=== PATIENT | female | born 1950 | race Caucasian/White ===

== ENCOUNTER 2016-06-25 21:26 | Emergency (ER) | payer MEDICARE, OTHER ==
[2016-06-25] MEDS ORDERED: HYDROcodone/Acetaminophen 10/325 mg Tablet ONE (21:58)
[2016-06-25] MEDS ORDERED: Metoprolol Tartrate 50 MG TAB ONE (22:01)
[2016-06-25] MEDS ORDERED: Amoxicillin/Potassium Clav 875 MG TAB ONE (22:12)
[2016-06-25] MEDS ORDERED: Phenazopyridine HCl 97.5 MG TABLET PO SCH ×2 (22:15)
--- NOTE | 2016-06-25 22:27 | ERRECORD ---
[facility] EMERGENCY RECORD HPI UTI (22:02 RW) CHIEF COMPLAINT: Patient presents for evaluation of urinary tract infection signs or symptoms:, dysuria, frequency, hesitancy. HISTORIAN: History provided by patient. LOCATION: Symptoms are localized, most severe in the suprapubic region. QUALITY: Described as similar to previous episodes. SEVERITY: Maximum severity of symptoms mild, Currently symptoms are mild, Maximum severity of pain rated as 10/10, Current severity of pain rated as 10/10. TIME COURSE: Patient unable to describe onset of symptoms, There has been no change in the patient's symptoms over time, are constant. ASSOCIATED WITH FEMALE: No associated symptoms. EXACERBATED BY: Patient's condition exacerbated by nothing. RELIEVED BY: Patient's condition relieved by nothing. ROS (22:03 RW) CONSTITUTIONAL: Negative constitutional review of systems. EYES: Negative eye review of systems. ENT: Negative ears, nose, throat review of systems. CARDIOVASCULAR: Negative cardiovascular review of systems. RESPIRATORY: Negative respiratory review of systems. GI: Negative gastrointestinal review of systems. GENITOURINARY FEMALE: Historian reports dysuria, reports hesitancy. MUSCULOSKELETAL: Negative musculoskeletal review of systems. SKIN: Negative skin review of systems. NEUROLOGIC: Negative neurologic review of systems. ENDOCRINE: Negative endocrine review of systems. HEMO/LYMPHATIC: Normal hematologic/lymphatic system review. ALLERGIC/IMMUNOLOGIC: Normal allergy/immunologic system review. PSYCHIATRIC: Negative psychiatric review of systems. NOTES: All systems reviewed, negative except as described above. PAST MEDICAL HISTORY (21:49 KASA) MEDICAL HISTORY: Notes: 244/106, Flu vaccine not up to date, Tetanus immunization up to date, Date of immunization: 2010, Pneumococcal vaccine not up to date, Past medical history includes renal disease, Bladder infections, Past medical history includes gastrointestinal disease, bowel obstruction, Past medical history includes history of hypertension, Patient is compliant, Notes: Colon issues from hernia repair. FEMALE SURGICAL HISTORY: Surgical history of hernia repair, Surgical history of hysterectomy,. PSYCHIATRIC HISTORY: Psychiatric history includes, anxiety. SOCIAL HISTORY: Lives at home, with family, Patient drinks &a-1R&a+25V*p+0X*z5109H*c202B*c15G*c2P*p-0X&a-25V&a+1R Name: Riana Harris : 1950 F66 MedRec: [id number] AcctNum: [id number] Prepared: evy Jun 25, 2016 22:41 by Interface Page 1 of 3 pMD [facility] EMERGENCY RECORD socially, every week, Patient denies drug use, Patient has no smoking history. KNOWN ALLERGIES Sulfa (Unconfirmed) Sulfa (Sulfonamide Antibiotics) (Unconfirmed) CURRENT MEDICATIONS lisinopril: TABLET : Strength - 20 mg : ORAL Patient Dose: 1 tab(s) Oral once a day (in the morning). (21:50 KASA) carvedilol: TABLET : Strength - 12.5 mg : ORAL Patient Dose: 1 tab(s) Oral 2 times a day. (21:50 KASA) aspirin: TABLET : Strength - 81 mg : ORAL Patient Dose: 1 tab(s) Oral once a day (in the morning).holding due to recent dental procedure. (21:56 KASA) vitamin E: CAPSULE : Strength - 400 unit : ORAL Patient Dose: 1 tab(s) Oral once a day (in the morning). (21:56 KASA) Miralax: POWDER IN PACKET (EA) : Strength - 17 gram : ORAL Patient Dose: 1 yamila Oral once a day (in the morning).1 PCKT IN WATER. (21:56 KASA) Tylenol-Codeine #3: TABLET : Strength - 300 mg-30 mg : ORAL Patient Dose: 1-2 tab(s) Oral every 6 hours PRN. (21:56 KASA) VITAL SIGNS (21:41 KASA) VITAL SIGNS: BP: 219/107, Pulse: 82, Resp: 20, Temp: 97.8 (Oral), Pain: 10 (Constant), O2 sat: 94 on Room Air, Time: 06/25/2016 21:41. PHYSICAL EXAM (22:04 RW) CONSTITUTIONAL: Vital signs reviewed, Blood pressure, hypertensive, took evening BP meds "anxious". HEAD: Head exam normal. EYES: Eye exam normal. ENT: ENT exam normal. NECK: Neck exam normal. RESPIRATORY CHEST: Respiratory and chest exam normal. CARDIOVASCULAR: Cardiovascular assessment normal. ABDOMEN FEMALE: Abdominal exam normal. BACK: Back exam normal. UPPER EXTREMITY: Upper extremity exam normal. LOWER EXTREMITY: Lower extremity exam normal. NEURO: Neuro exam normal. &a-1R&a+25V*p+0X*q9189Q*c202B*c15G*c2P*p-0X&a-25V&a+1R Name: Riana Harris : 1950 F66 MedRec: [id number] AcctNum: [id number] Prepared: FriJun 25, 2016 22:41 by Interface Page 2 of 3 pMD [facility] EMERGENCY RECORD SKIN: Skin exam normal. LYMPHATIC: Lymphatic exam normal. PSYCHIATRIC: Psychiatric exam normal. MEDICATION ADMINISTRATION SUMMARY Drug Name: Augmentin, Dose Ordered: 1 tab(s), Route: Oral, Status: Given, Time: 22:14 06/25/2016, Detailed record available in Medication Service section. PROBLEM LIST No recorded problems DIAGNOSIS (22:01 RWAG) FINAL: PRIMARY: UTI, ADDITIONAL: ESSENTIAL PRIMARY HYPERTENSION. PRESCRIPTION Levaquin oral: TABLET : 750 mg : ORAL : Quantity: 1 Unit: tab(s) Route: ORAL Schedule: once a day (in the morning) Dispense: 7 Unit: tab(s) May substitute. Refills: No Refills . (22:00 RWAG) NOTES: No Refills. (22:00 RWAG) Pyridium: TABLET : 200 mg : ORAL : Quantity: 1 Unit: tab(s) Route: ORAL Schedule: 3 times a day Dispense: 9 Unit: tab(s) May substitute. Refills: No Refills . (22:00 RWAG) NOTES: No Refills. (22:00 RWAG) Augmentin: TABLET : 875 mg-125 mg : ORAL : Quantity: 1 Unit: tab(s) Route: ORAL Schedule: every 12 hours Dispense: 10 Unit: tab(s) May substitute. Refills: No Refills . (22:12 RWAG) NOTES: No Refills. (22:12 RWAG) DISPOSITION PATIENT: Disposition Type: Discharge, Disposition: *Discharge Home, Disposition Transport: Car, Condition: Improved. (22:01 RWAG) Patient left the department. (22:18 KASA) Galvin: KASA=CHRISTOPHE Nunez, Lisha RWAG=MD Tyler, Rangel &a-1R&a+25V*p+0X*q5683W*c202B*c15G*c2P*p-0X&a-25V&a+1R Name: Riana Harris : 1950 F66 MedRec: [id number] AcctNum: [id number] Prepared: Larry Jun 25, 2016 22:41 by Interface Page 3 of 3 pMD MTDD
--- NOTE | 2016-06-25 22:33 | PICIS ---
[facility] EMERGENCY RECORD TRIAGE (FriJun 25, 2016 21:36 KASA) PATIENT: NAME: Riana Harris, AGE: 66, GENDER: female, : Fri1950, TIME OF GREET: FriJun 25, 2016 21:27, PREFERRED LANGUAGE: Haitian, ETHNICITY: Not or , ECODE BILLING MAP: [facility] [place] [facility], SSN: [id number], Zip Code: [address], KG WEIGHT: 79.38, PHONE: , , , PERSON ID: [id number]. (FriJun 25, 2016 21:36 KASA) COMPLAINT: THINKS BLADDER INF OR KIDNEY STONE,SINCE FRI. (FriJun 25, 2016 21:36 KASA) ADMISSION: URGENCY: 4 Non Urgent, ADMISSION SOURCE: Home, TRANSPORT: CAR, BED: ER -03. (FriJun 25, 2016 21:36 KASA) ASSESSMENT: Symptoms began 06/21/2016. (21:49 KASA) PAIN: Patient complains of pain described as, aching, on a scale 0-10 patient rates pain as 10, Location Lower abdominal, Pain is intermittent, Onset was 06/21/2016, No aggravating factors, No relieving factors. (21:49 KASA) SIRS SCORING: Heart Rate 55-109 (0), Temp range 96.8-101.1 (0), respiratory rate 12-24 (0), Mental Status altered: no (0). (21:49 KASA) TRIAGE SCREENING: Patient denies suicidal ideation, Patient denies presence of domestic violence. (21:49 KASA) TREATMENTS IN PROGRESS: Treatments given Prehospital: 2-Aleeve @ 2100. (21:49 KASA) PROVIDERS: TRIAGE NURSE: Lisha Nunez RN. (FriJun 25, 2016 21:36 KASA) VITAL SIGNS: BP 219/107, Pulse 82, Resp 20, Temp 97.8, (Oral), Pain 10, (Constant), O2 Sat 94, on Room Air, Time 06/25/2016 21:41. (21:41 KASA) PREVIOUS VISIT ALLERGIES: Sulfa (Sulfonamide Antibiotics). (FriJun 25, 2016 21:36 KASA) Sulfa (Sulfonamide Antibiotics). (21:49 KASA) KNOWN ALLERGIES Sulfa (Unconfirmed) Sulfa (Sulfonamide Antibiotics) (Unconfirmed) CURRENT MEDICATIONS lisinopril: TABLET : Strength - 20 mg : ORAL Patient Dose: 1 tab(s) Oral once a day (in the morning). (21:50 KASA) carvedilol: TABLET : Strength - 12.5 mg : ORAL Patient Dose: 1 tab(s) Oral 2 times a day. (21:50 KASA) aspirin: TABLET : Strength - 81 mg : ORAL Patient Dose: 1 tab(s) Oral once a day (in the morning).holding due to recent dental procedure. (21:56 KASA) &a-1R&a+25V*p+0X*h3401X*c202B*c15G*c2P*p-0X&a-25V&a+1R Name: Riana Harris : 1950 F66 MedRec: [id number] AcctNum: [id number] Prepared: FriJun 25, 2016 22:48 by Interface Page 1 of 5 pMD [facility] EMERGENCY RECORD vitamin E: CAPSULE : Strength - 400 unit : ORAL Patient Dose: 1 tab(s) Oral once a day (in the morning). (21:56 KASA) Miralax: POWDER IN PACKET (EA) : Strength - 17 gram : ORAL Patient Dose: 1 yamila Oral once a day (in the morning).1 PCKT IN WATER. (21:56 KASA) Tylenol-Codeine #3: TABLET : Strength - 300 mg-30 mg : ORAL Patient Dose: 1-2 tab(s) Oral every 6 hours PRN. (21:56 KASA) VITAL SIGNS (21:41 KASA) VITAL SIGNS: BP: 219/107, Pulse: 82, Resp: 20, Temp: 97.8 (Oral), Pain: 10 (Constant), O2 sat: 94 on Room Air, Time: 06/25/2016 21:41. NURSING ASSESSMENT: ABDOMEN (21:50 KASA) CONSTITUTIONAL: Patient arrives ambulatory, Gait steady, History obtained from patient, Patient appears, uncomfortable, Patient cooperative, Oriented to person, place and time, Skin warm, Skin dry, Skin normal in color, Mucous membranes pink, Mucous membranes moist, Patient complains of Lower abdominal pain, Lower abdominal pain that radiates up to the bilateral lower back, that started Friday. Pt thinks she has a bladder infection or kidney stone. ABDOMEN: Abdomen assessment findings include abdomen symmetrical, Abdomen soft, no associated nausea, no associated vomiting. GENITOURINARY FEMALE: Associated with urinary complaints, difficulty urinating, inability to void, a foul odor, Date and time of last void: 06/25/2016, voided at home just before coming in. SAFETY: Side rails up, Cart/Stretcher in lowest position, Call light within reach, Hospital ID band on. ORDER DETAILS Order Name: Urinalysis w/ Rflx Microscopic, Status: Canceled, Time: 22:28 06/25/2016, User: System, - Ordered for: MD Tyler, Rangel, - Entered by: CHRISTOPHE Nunez Kathy - Tue Jun 25, 2016 21:37, - Quantity: 1. MEDICATION ADMINISTRATION SUMMARY Drug Name: Augmentin, Dose Ordered: 1 tab(s), Route: Oral, Status: Given, Time: 22:14 06/25/2016, Detailed record available in Medication Service section. MEDICATION SERVICE (22:14 [facility]) &a-1R&a+25V*p+0X*u6316Q*c202B*c15G*c2P*p-0X&a-25V&a+1R Name: Riana Harris : 1950 F66 MedRec: [id number] AcctNum: [id number] Prepared: FriJun 25, 2016 22:48 by Interface Page 2 of 5 pMD [facility] EMERGENCY RECORD Augmentin: Order: Augmentin (amoxicillin trihydrate/potassium clavulanate) - Dose: 1 tab(s) : Oral Schedule: Now Ordered by: Rangel Scott MD Entered by: Rangel Scott MD FriJun 25, 2016 22:11 , Acknowledged by: Lisha Nunez RN FriJun 25, 2016 22:13 Documented as given by: Lisha Nunez RN evy Jun 25, 2016 22:14 Patient, Medication, Dose, Route and Time verified prior to administration. Amount given: 1 tab, Site: Medication administered P.O., Correct patient, time, route, dose and medication confirmed prior to administration, Patient advised of actions and side-effects prior to administration, Allergies confirmed and medications reviewed prior to administration, Patient in position of comfort, Side rails up, Cart in lowest position. HPI UTI (22:02 [facility]) CHIEF COMPLAINT: Patient presents for evaluation of urinary tract infection signs or symptoms:, dysuria, frequency, hesitancy. HISTORIAN: History provided by patient. LOCATION: Symptoms are localized, most severe in the suprapubic region. QUALITY: Described as similar to previous episodes. SEVERITY: Maximum severity of symptoms mild, Currently symptoms are mild, Maximum severity of pain rated as 10/10, Current severity of pain rated as 10/10. TIME COURSE: Patient unable to describe onset of symptoms, There has been no change in the patient's symptoms over time, are constant. ASSOCIATED WITH FEMALE: No associated symptoms. EXACERBATED BY: Patient's condition exacerbated by nothing. RELIEVED BY: Patient's condition relieved by nothing. ROS (22:03 [facility]) CONSTITUTIONAL: Negative constitutional review of systems. EYES: Negative eye review of systems. ENT: Negative ears, nose, throat review of systems. CARDIOVASCULAR: Negative cardiovascular review of systems. RESPIRATORY: Negative respiratory review of systems. GI: Negative gastrointestinal review of systems. GENITOURINARY FEMALE: Historian reports dysuria, reports hesitancy. MUSCULOSKELETAL: Negative musculoskeletal review of systems. SKIN: Negative skin review of systems. NEUROLOGIC: Negative neurologic review of systems. ENDOCRINE: Negative endocrine review of systems. HEMO/LYMPHATIC: Normal hematologic/lymphatic system review. ALLERGIC/IMMUNOLOGIC: Normal allergy/immunologic system review. PSYCHIATRIC: Negative psychiatric review of systems. &a-1R&a+25V*p+0X*p8528J*c202B*c15G*c2P*p-0X&a-25V&a+1R Name: Riana Harris : 1950 F66 MedRec: [id number] AcctNum: [id number] Prepared: Larry Jun 25, 2016 22:48 by Interface Page 3 of 5 pMD [facility] EMERGENCY RECORD NOTES: All systems reviewed, negative except as described above. PAST MEDICAL HISTORY (21:49 KASA) MEDICAL HISTORY: Notes: 244/106, Flu vaccine not up to date, Tetanus immunization up to date, Date of immunization: 2010, Pneumococcal vaccine not up to date, Past medical history includes renal disease, Bladder infections, Past medical history includes gastrointestinal disease, bowel obstruction, Past medical history includes history of hypertension, Patient is compliant, Notes: Colon issues from hernia repair. FEMALE SURGICAL HISTORY: Surgical history of hernia repair, Surgical history of hysterectomy,. PSYCHIATRIC HISTORY: Psychiatric history includes, anxiety. SOCIAL HISTORY: Lives at home, with family, Patient drinks socially, every week, Patient denies drug use, Patient has no smoking history. PHYSICAL EXAM (22:04 RWAG) CONSTITUTIONAL: Vital signs reviewed, Blood pressure, hypertensive, took evening BP meds "anxious". HEAD: Head exam normal. EYES: Eye exam normal. ENT: ENT exam normal. NECK: Neck exam normal. RESPIRATORY CHEST: Respiratory and chest exam normal. CARDIOVASCULAR: Cardiovascular assessment normal. ABDOMEN FEMALE: Abdominal exam normal. BACK: Back exam normal. UPPER EXTREMITY: Upper extremity exam normal. LOWER EXTREMITY: Lower extremity exam normal. NEURO: Neuro exam normal. SKIN: Skin exam normal. LYMPHATIC: Lymphatic exam normal. PSYCHIATRIC: Psychiatric exam normal. EVENTS TRANSFER: Triage to Emergency Emergency Room -03. (21:36 KASA) Removed from Emergency Emergency Room -03. (22:18 KASA) PROBLEM LIST No recorded problems DIAGNOSIS (22:01 RWAG) FINAL: PRIMARY: UTI, ADDITIONAL: ESSENTIAL PRIMARY HYPERTENSION. DISPOSITION PATIENT: Disposition Type: Discharge, Disposition: *Discharge &a-1R&a+25V*p+0X*d1332E*c202B*c15G*c2P*p-0X&a-25V&a+1R Name: Riana Harris Evy : 1950 F66 MedRec: [id number] AcctNum: [id number] Prepared: Larry Jun 25, 2016 22:48 by Interface Page 4 of 5 pMD [facility] EMERGENCY RECORD Home, Disposition Transport: Car, Condition: Improved. (22:01 RWAG) Patient left the department. (22:18 KASA) INSTRUCTION (22:02 RW) DISCHARGE: UTI CYSTITIS FEMALE ADULT, HYPERTENSION, ESTABLISHED. FOLLOWUP: MD Gera, Jude Kay, [facility], [address] [address], , Follow up with Primary Care Physician in 3-4 days. SPECIAL: Follow-up with your PCP. PRESCRIPTION Levaquin oral: TABLET : 750 mg : ORAL : Quantity: 1 Unit: tab(s) Route: ORAL Schedule: once a day (in the morning) Dispense: 7 Unit: tab(s) May substitute. Refills: No Refills . (22:00 RW) NOTES: No Refills. (22:00 RWAG) Pyridium: TABLET : 200 mg : ORAL : Quantity: 1 Unit: tab(s) Route: ORAL Schedule: 3 times a day Dispense: 9 Unit: tab(s) May substitute. Refills: No Refills . (22:00 RWAG) NOTES: No Refills. (22:00 RWAG) Augmentin: TABLET : 875 mg-125 mg : ORAL : Quantity: 1 Unit: tab(s) Route: ORAL Schedule: every 12 hours Dispense: 10 Unit: tab(s) May substitute. Refills: No Refills . (22:12 RW) NOTES: No Refills. (22:12 RW) IMAGING *DISCHARGE INSTRUCTIONS RECEIPT: Image captured from scanner. (22:42 [facility]) *SUPPLY CHARGE SHEET: Image captured from scanner. (22:45 [facility]) ADMIN (22:35 [facility]) DIGITAL SIGNATURE: MD Tyler, Rangel. Galvin: REINALDO=CHRISTOPHE Nunez, Lisha RWAG=MD Scott Richard &a-1R&a+25V*p+0X*d4775H*c202B*c15G*c2P*p-0X&a-25V&a+1R Name: Riana Harris : 1950 F66 MedRec: [id number] AcctNum: [id number] Prepared: FriJun 25, 2016 22:48 by Interface Page 5 of 5 pMD [facility] MEDICATION RECONCILIATION You were seen in the Emergency Department on: FriJun 25, 2016 KNOWN ALLERGIES Sulfa (Unconfirmed) Sulfa (Sulfonamide Antibiotics) (Unconfirmed) MEDICATIONS GIVEN WHILE IN THE EMERGENCY DEPARTMENT Augmentin (amoxicillin trihydrate/potassium clavulanate) - Dose: 1 tab(s) : Oral HOME MEDICATIONS aspirin : TABLET : Strength - 81 mg : ORAL Patient had been takin tab(s) Oral once a day (in the morning). Comment: holding due to recent dental procedure. Miralax : POWDER IN PACKET (EA) : Strength - 17 gram : ORAL Patient had been takin yamila Oral once a day (in the morning). Comment: 1 PCKT IN WATER. Tylenol-Codeine #3 : TABLET : Strength - 300 mg-30 mg : ORAL Patient had been takin-2 tab(s) Oral every 6 hours PRN. vitamin E : CAPSULE : Strength - 400 unit : ORAL Patient had been takin tab(s) Oral once a day (in the morning). CONTINUE PRESCRIBED carvedilol : TABLET : Strength - 12.5 mg : ORAL Continue as prescribed Patient had been takin tab(s) Oral 2 times a day. lisinopril : TABLET : Strength - 20 mg : ORAL Continue as prescribed Patient had been takin tab(s) Oral once a day (in the morning). Notes from the emergency department Reviewed with patient Reviewed with patient PRESCRIPTIONS (3) &a-1R&a+25V*p+0X*s2448J*c202B*c15G*c2P*p-0X&a-25V&a+1R Name: Riana Harris : 1950 F66 MedRec: [id number] AcctNum: [id number] Prepared: Larry Jun 25, 2016 22:48 by Interface pMD [facility] MEDICATION RECONCILIATION Printed (3) Levaquin oral : TABLET : 750 mg : ORAL Quantity: 1, Unit: tab(s), Route: ORAL, Schedule: once a day (in the morning), Dispense: 7 Unit: tab(s) Pyridium : TABLET : 200 mg : ORAL Quantity: 1, Unit: tab(s), Route: ORAL, Schedule: 3 times a day, Dispense: 9 Unit: tab(s) &a-1R&a+25V*p+0X*v3007H*c202B*c15G*c2P*p-0X&a-25V&a+1R Name: Riana Harris : 1950 F66 MedRec: [id number] AcctNum: [id number] Prepared: Larry Jun 25, 2016 22:48 by Interface pMD MTDD
== END 2016-06-25 21:50 | disposition home or self-care (01) ==
LOC: NAV ERS 21:26
DX: N39.0 Urinary tract infection, site not specified (principal); I10 Essential (primary) hypertension; K21.9 Gastro-esophageal reflux disease without esophagitis; F41.9 Anxiety disorder, unspecified
CPT/HCPCS: 99283

== ENCOUNTER 2020-09-19 10:31 | Emergency (ER) | payer MEDICARE ==
[2020-09-19 10:58] LABS: Bilirubin Negative (Negative); Blood, Urine Negative (Negative); Clarity Clear (Clear); Glucose, Urine (Dipstick) Negative (Negative); Ketone, Urine Negative (Negative); Leukocyte Negative (Negative); Nitrite Negative (Negative); Protein, Urine (Dipstick) Negative (Neg-Trace); Urobilinogen 0.2 mg/dL (Less than 2); pH, Urine 5.5 (5.0-9.0)
[2020-09-19 10:59] LABS: Specific Gravity, Urine 1.025 (1.002-1.036)
== END 2020-09-19 11:08 | disposition home or self-care (01) ==
LOC: NAV ERS 10:31
DX: M70.72 Other bursitis of hip, left hip (principal); I10 Essential (primary) hypertension; E11.9 Type 2 diabetes mellitus without complications
CPT/HCPCS: 81003; 99283

== ENCOUNTER 2020-12-10 04:13 | Emergency (ER) | payer MEDICARE | END 2020-12-10 04:52 | disposition home or self-care (01) | LOC: NAV ERS 04:13 | DX: S61.512A Laceration without foreign body of left wrist, initial encounter (principal); E11.9 Type 2 diabetes mellitus without complications; I10 Essential (primary) hypertension; W50.4XXA Accidental scratch by another person, initial encounter | CPT/HCPCS: 99282 ==

== ENCOUNTER 2021-06-06 09:23 | Emergency (ER) | payer MEDICARE ==
[2021-06-06 10:13] LABS: Bilirubin Negative (Negative); Blood, Urine Negative (Negative); Clarity Clear (Clear); Glucose, Urine (Dipstick) Negative (Negative); Ketone, Urine Negative (Negative); Leukocyte Negative (Negative); Nitrite Negative (Negative); Protein, Urine (Dipstick) Negative (Neg-Trace); Specific Gravity, Urine 1.025 (1.005-1.030); Urobilinogen 0.2 mg/dL (Less than 2)
== END 2021-06-06 11:18 | disposition home or self-care (01) ==
LOC: NAV ERS 09:23
DX: R30.0 Dysuria (principal); I10 Essential (primary) hypertension; E11.9 Type 2 diabetes mellitus without complications
CPT/HCPCS: 74176; 81003; 87086

== ENCOUNTER 2021-10-03 16:33 | Emergency (ER) | payer MEDICARE ==
[2021-10-03 20:38] LABS: Clarity Clear (Clear); Glucose, Urine (Dipstick) Negative (Negative); Ketone, Urine Trace mg/dL (Negative); Leukocyte Negative (Negative); Nitrite Negative (Negative); Protein, Urine (Dipstick) Negative (Neg-Trace); Specific Gravity, Urine 1.025 (1.005-1.030)
[2021-10-03 20:39] LABS: Bilirubin Negative (Negative); Blood, Urine Negative (Negative); RBC/HPF None Seen HPF (0-3); Squamous Epithelial 0-3 HPF (0-3); Urobilinogen 0.2 mg/dL (Less than 2); WBC/HPF None Seen HPF (0-3)
== END 2021-10-03 18:15 | disposition home or self-care (01) ==
LOC: NAV ERS 16:33
DX: M54.50 Low back pain, unspecified (principal); R30.0 Dysuria; I10 Essential (primary) hypertension; E11.9 Type 2 diabetes mellitus without complications; Z87.19 Personal history of other diseases of the digestive system
CPT/HCPCS: 81001; 99283

== ENCOUNTER 2022-01-02 11:48 | Emergency (ER) | payer MEDICARE ==
[2022-01-02 13:02] LABS: Bilirubin Negative (Negative); Blood, Urine Trace (Negative); Clarity Clear (Clear); Glucose, Urine (Dipstick) 500 mg/dL (Negative); Ketone, Urine Negative (Negative); Leukocyte Negative (Negative); Nitrite Negative (Negative); Protein, Urine (Dipstick) Negative (Neg-Trace); Specific Gravity, Urine 1.015 (1.005-1.030); Urobilinogen 0.2 mg/dL (Less than 2); pH, Urine 5.5 (5.0-9.0)
[2022-01-02 13:04] LABS: Bacteria/HPF Rare-Few HPF (None Seen); RBC/HPF 0-3 HPF (0-3); Squamous Epithelial 0-3 HPF (0-3); WBC/HPF 0-3 HPF (0-3)
== END 2022-01-02 13:30 | disposition home or self-care (01) ==
LOC: NAV ERS 11:48
DX: R30.0 Dysuria (principal); R10.9 Unspecified abdominal pain; I10 Essential (primary) hypertension
CPT/HCPCS: 81003; 81015; 87086; 99284

== ENCOUNTER 2022-12-04 13:45 | Emergency (ER) | payer MEDICARE | END 2022-12-04 14:31 | disposition home or self-care (01) | LOC: NAV ERS 13:45 | DX: S50.01XA Contusion of right elbow, initial encounter (principal); M70.31 Other bursitis of elbow, right elbow; E11.9 Type 2 diabetes mellitus without complications; I10 Essential (primary) hypertension; Z79.84 Long term (current) use of oral hypoglycemic drugs; Z79.82 Long term (current) use of aspirin ==

== ENCOUNTER 2023-12-15 11:10 | Emergency (ER) | payer MEDICARE ==
[2023-12-15 11:48] LABS: Bilirubin Negative (Negative); Blood, Urine Negative (Negative); Clarity Clear (Clear); Glucose, Urine (Dipstick) Negative (Negative); Ketone, Urine Negative (Negative); Leukocyte Negative (Negative); Nitrite Negative (Negative); Protein, Urine (Dipstick) Negative (Neg-Trace); Urobilinogen 0.2 mg/dL (Less than 2); pH, Urine 6.5 (5.0-9.0)
[2023-12-15 11:55] LABS: CAUTI Indications for Culture Dysuria,urgency,freq; RBC/HPF None Seen HPF (0-3); Squamous Epithelial 0-3 HPF (0-3); WBC/HPF 0-3 HPF (0-3)
[2023-12-15 11:56] LABS: Bacteria/HPF None Seen HPF (None Seen)
[2023-12-15 11:57] LABS: Urine Culture Reflex No No
== END 2023-12-15 12:27 | disposition home or self-care (01) ==
LOC: NAV ERS 11:10
DX: R30.0 Dysuria (principal); I10 Essential (primary) hypertension; E11.9 Type 2 diabetes mellitus without complications; Z79.899 Other long term (current) drug therapy; Z79.84 Long term (current) use of oral hypoglycemic drugs
CPT/HCPCS: 81001; 99283

== ENCOUNTER 2024-01-10 20:51 | Emergency (ER) | payer MEDICARE | END 2024-01-10 21:22 | disposition home or self-care (01) | LOC: NAV ERS 20:51 | DX: R21 Rash and other nonspecific skin eruption (principal); I10 Essential (primary) hypertension; E11.9 Type 2 diabetes mellitus without complications; Z79.899 Other long term (current) drug therapy; Z79.84 Long term (current) use of oral hypoglycemic drugs | CPT/HCPCS: 99282 ==

== ENCOUNTER 2024-04-09 15:47 | Emergency (ER) | payer MEDICARE ==
[2024-04-09] MEDS ORDERED: Acetaminophen 500 MG TAB ONE (16:29)
== END 2024-04-09 16:44 | disposition home or self-care (01) ==
LOC: NAV ERS 15:47
DX: S90.122A Contusion of left lesser toe(s) without damage to nail, initial encounter (principal); I10 Essential (primary) hypertension; E11.9 Type 2 diabetes mellitus without complications; W22.8XXA Striking against or struck by other objects, initial encounter; Y93.E2 Activity, laundry; Z79.84 Long term (current) use of oral hypoglycemic drugs; Z79.82 Long term (current) use of aspirin; Z79.899 Other long term (current) drug therapy
CPT/HCPCS: 99283